=== PATIENT | female | born 1995 | race Two or more races ===

== ENCOUNTER → 2024-05-24 | Outpatient (BNVA) | payer OTHER, SELFPAY | END | disposition home or self-care (01) | PROVIDERS: PCP Internal Medicine; Referring Provider Specialist; Visit Provider Urology | DX: N20.2 Calculus of kidney with calculus of ureter (principal) | CPT/HCPCS: 81003; 99212; G0463 ==

== ENCOUNTER 2024-08-19 12:53 | Inpatient (IN) | payer OTHER, SELFPAY ==
[2024-08-19] VITALS (58 sets, daily range): BP systolic 123–144; BP diastolic 73–92; PULSE 80–100; RESP 16–100; TEMP 36.6–37.2; O2SAT 98–100; BMI 23.6
[2024-08-19 13:47] LABS: ROM Kit Lot # 578010271; Swb Mxed in Solvent 1 min? Yes
[2024-08-19 13:48] LABS: ROM Swab Mixed By: DURAJ; Rupture of Fetal Membranes Negative (Negative)
[2024-08-19 14:35] LABS: Basophils % (Auto) 0 % (0-2.5); Eosinophils # (Auto) 0.1 Thou/mm3 (0.0-0.5); Eosinophils % (Auto) 1 % (0-10); Hematocrit 33.1 % (36.0-46.0); Hemoglobin 12.3 g/dL (12.0-16.0); Immature Granulocytes % (Auto) 0 % (0-0); Immature Granulocytes Auto 0.04 Thou/mm3 (0.00-0.00); Lymphocytes # (Auto) 1.8 Thou/mm3 (1.0-4.8); Lymphocytes % (Auto) 19 % (10-50); Mean Corpuscular HGB Conc 37.2 g/dl (31.0-37.0); Mean Corpuscular Hemoglobin 33.7 pg (25.0-35.0); Mean Corpuscular Volume 91 fL (80-100); Monocytes # (Auto) 0.6 Thou/mm3 (0.0-0.8); Monocytes % (Auto) 6 % (0-12); Neutrophils # (Auto) 7.1 Thou/mm3 (1.8-7.7); Neutrophils % (Auto) 74 % (37-80); Nucleated Red Blood Cell % 0 /100 WBC (0); Platelet Count 219 Thou/mm3 (140-440); RDW Standard Deviation 44.2 fL (36.4-46.3); Red Blood Count 3.65 Miln/mm3 (4.00-5.20); White Blood Count 9.7 Thou/mm3 (3.6-11.0)
[2024-08-19 14:59] LABS: Alanine Aminotransferase 21 U/L (10-49); Albumin, Serum 3.8 gm/dL (3.5-5.0); Albumin/Globulin Ratio 1.8 (1.2-2.2); Alkaline Phosphatase 155 U/L (46-116); Anion Gap 12 (7-16); BUN/Creatinine Ratio 8 Ratio (12-20); Bilirubin,Total 0.4 mg/dL (0.3-1.2); Blood Urea Nitrogen 5 mg/dL (9-23); Calcium 9.2 mg/dL (8.3-10.6); Calcium (Corrected) 9.4 mg/dL (8.5-10.1); Carbon Dioxide 19.6 mMol/L (20.0-31.0); Chloride 110 mMol/L (98-107); Creatinine (Component) 0.6 mg/dL (0.6-1.3); Estimated Creatinine Clearance 131.8 mL/min (>60); Globulin 2.1 gm/dL (2.3-3.5); Glucose 78 mg/dL (74-106); Osmolality,Calculated 279 (275-295); Potassium 3.6 mMol/L (3.4-5.1); Sodium 142 mMol/L (136-145); Total Protein 5.9 gm/dL (5.7-8.2); Uric Acid 5.7 mg/dL (3.1-7.8); eGFR > 60 See Note
[2024-08-19] MEDS: RINGERS LACTATED 1000 ML 1,000 ML 100 ML IV (15:00)
[2024-08-19 15:17] LABS: Syphilis Nonreactive (Nonreactive)
[2024-08-19 15:51] LABS: Fibrinogen 440 mg/dL (175-375); INR 0.9 (0.9-1.3); Partial Thromboplastin Time 24.8 Seconds (22.0-36.0); Prothrombin Time 9.7 Seconds (9.0-12.2)
[2024-08-19 16:05] LABS: Collection Type, Urine Clean Catch
[2024-08-19 17:04] LABS: Bacteria,Urine 1+; Bilirubin,Urine Negative (Negative); Blood,Urine 2+ (Negative); Color,Urine Colorless (Lt Yel-Yel); Glucose, Urine Negative (Negative); Ketones,Urine Negative (Negative); Leukocyte Esterase,Urine Positive (Negative); Nitrite,Urine Negative (Negative); PH,Urine 7.5 (5.0-7.0); Protein,Urine Negative (Neg - Trace); RBC,Urine 2 /hpf (0-3); Specific Gravity,Urine 1.004 (1.001-1.035); Sperm,Urine Present; Squamous Epithelial Cell,Urine 4 /hpf (0-5); Urobilinogen,Urine Negative mg/dL (0.0-1.0); WBC,Urine 2 /hpf (0-5)
[2024-08-19 17:05] LABS: Clarity,Urine Hazy (Clear/Hazy)
--- NOTE | 2024-08-19 19:04 | PD.LDHP ---
Documentation for date of: 08/19/24 OB Labor/Induct. HPI History of Present Illness Chief complaint: Early labor : 2 Para: 0 Term pregnancies: 0 pregnancies: 0 Living children: 0 History of Abortions: Spontaneous and Elective: 1 History of Vaginal deliveries: 0 History of sections: No History of : No PENELOPE: 08/20/24 Gestational Age (weeks): 39 Gestational Age (days): 6 Indication for induction: other (Slightly elevated blood pressures) History of present illness: Patient is a 29-year-old -0-1-0 with all care uncomplicated with Dr. Baltazar Maldonado who presented to triage this afternoon with some spotting and she thought she might be leaking. She tested negative for membrane rupture with an AmniSure. She was however abril about every 2 to 3 minutes. The patient was 1 to 2 cm on admission. Her blood pressures were elevated in the 140s over 80s and PIH labs were drawn which were normal. As the patient was scheduled for an induction with Dr Maldonado in the morning of 08/20/2024, and her blood pressures were slightly dilated elevated she was admitted to labor and delivery. Of note the wind instrument repairer checked her on admission she was 1 to 2 cm dilated. When I checked her about 2 hours later she progressed to 3 cm dilatation. She is interested in epidural. All care is up-to-date in the chart and her group B strep is negative. History of Present Dating criteria: LMP confirmed by 1st trimester US Adequate Care: Yes Ultrasounds: normal mid trimester US Obstetrical complications: none Medical complications: none Labs Maternal Blood Type: A Neg Labs: Positive: Rubella Titre, Negative: RPR, Hepatitis B, HIV, Chlamydia and Gonorrhea and Unknown: Herpes Type 1, Herpes Type 2 and Group Beta Strep Past Medical History Surgical History SURGICAL: Negative Section Meds Home Medications and Allergies Home Medications ?Medication ?Instructions ?Recorded ?Confirmed ?Type doxylamine 10 mg-pyridoxine (vit 1 tab PO QDAY 05/24/24 05/24/24 History B6) 10 mg tablet,delayed release (Diclegis) Allergies Allergy/AdvReac Type Severity Reaction Status Date / Time No Known Allergies Allergy Unverified 05/24/24 14:28 OB Exam Physical Exam Vital signs: Temp Pulse Resp BP Pulse Ox 97.9 F 85 17 125/73 99 06/08/25 13:15 08/19/24 17:56 08/19/24 13:15 08/19/24 17:56 08/19/24 17:59 Detailed Labor and Delivery Exam Dilation (cm): 3 Effacement (%): 80 Cervix position: mid station: -2 Consistency: medium Presentation: Vertex Membranes: intact monitor accelerations: 15x15 monitor decelerations: None jail variability: Moderate (11-25) Contraction frequency (min): every 3 min on admission Tachysystole: No Contraction intensity: Mild OB Results Labs 08/19/24 14:12 08/19/24 14:12 Labs: Short CBC 08/19/24 Range/Units 14:12 WBC 9.7 (3.6-11.0) Thou/mm3 Hgb 12.3 (12.0-16.0) g/dL Hct 33.1 L (36.0-46.0) % Plt Count 219 (140-440) Thou/mm3 BMP 08/19/24 14:12 Sodium 142 Potassium 3.6 Chloride 110 H Carbon Dioxide 19.6 L BUN 5 L Creatinine 0.6 Glucose 78 Calcium 9.2 Liver Function 08/19/24 Range/Units 14:12 Total Bilirubin 0.4 (0.3-1.2) mg/dL ALT 21 (10-49) U/L Alkaline Phosphatase 155 H (46-116) U/L Albumin 3.8 (3.5-5.0) gm/dL Urine 08/19/24 Range/Units 14:30 Urine Color Colorless A (Lt Yel-Yel) Urine Clarity Hazy (Clear/Hazy) Urine pH 7.5 H (5.0-7.0) Ur Specific [place] 1.004 (1.001-1.035) Urine Protein Negative (Neg - Trace) Urine Glucose (UA) Negative (Negative) OB Assessment & Plan Assessment and Plan (1) Supervision of high risk in third trimester: Status: Acute Assessment and plan: Okay to ambulate. Patient allow me to strip her membranes. She was okay with an epidural followed by AROM and Pitocin if needed. Patient is making slow progress on her own and wants to walk in early labor. All preeclamptic labs are within normal limits
[2024-08-20] VITALS (291 sets, daily range): BP systolic 79–173; BP diastolic 40–101; PULSE 58–178; RESP 12–22; TEMP 36.3–37.7; O2SAT 90–100
[2024-08-20] MEDS: OXYTOCIN in NS 30 units 30 UNIT/500 ML BAG IV (02:50)
--- NOTE | 2024-08-20 10:14 | PD.ANESPROG ---
Documentation for date of: 08/20/24 BRIEF ANESTHESIA NOTE: Dr. Maldonado asked for my consult regarding this patient's labor epidural around 9:15 am today while I'm scheduled in OR. Her epidural was placed by the scheduled OB COSMETICS DEMONSTRATOR and he mentioned patient having high epidural after epidural placement and asked for my input about her epidural management with regard to progression of her labor. 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 I saw her in OB 453 just few minutes ago and she was alert, calm, on room air, seated up in bed, NAD, epidural in place but off, with RN and her family visitors at bedside. She reported after epidural was placed and she was given epidural bolus and she was made flat, she felt rushing feeling in her face, felt nauseous, and also felt drooping R eyelid and her pupil was reportedly constricted. Her epidural was stopped and it has been off since 5 am per RN report. On my visit, she reported she felt better and her facial symptoms have resolved, and she felt comfortable without any labor pain currently. The COSMETICS DEMONSTRATOR reported the same on his follow up prior to my visit. I did not notice any ptosis on my visit. She endorsed she felt comfortable from her labor pain after the epidural was placed, R > L. I educated them rare possibility of Ana's syndrome that can happen with epidural and it's usually transient and self resolves as it did in her case. They asked about doing second epidural catheter and I recommenced to them and her RN that given that she has working epidural in place, it would be esteves to still use it and not place another catheter that has its own risk. I recommended to let her labor pain come back and then re-start her epidural at a lower rate, like 6 cc/hr, and then continue close assessment. If then, the current epidural is still problematic, then a second epidural can be considered despite the risk. I discussed with her RN to continue to manage her labor as per their management. They agreed with the plan and had no further questions before I left. I discussed this with the COSMETICS DEMONSTRATOR including suggestions for further management, and with Dr. Maldonado. Jose C Walton MD Anesthesia Progress Note Progress Note Most recent Vital Signs: Last Vital Signs Temp 98.0 F 08/20/24 03:13 Pulse 107 H 08/20/24 10:01 Resp 18 08/20/24 03:13 BP 141/94 H 08/20/24 10:01 Pulse Ox 96 08/20/24 10:10
[2024-08-20] MEDS: RINGERS LACTATED 1000 ML 1,000 ML 100 ML IV ×2 (11:20→16:10)
[2024-08-20] MEDS: fentaNYL CIT INJ 50 mCg/ML AMP 2ML 100 MCG IVP ×2 (12:00→14:02)
--- NOTE | 2024-08-20 12:27 | PD.LDPN ---
Documentation for date of: 08/20/24 OB Labor Progress Note Pain Control Comments: Epidural and Fentanyl Pelvic Exam Dilation (cm): 4.5 Effacement (%): 80 station: -1 Amniotic membrane status: Ruptured Comments: vtx Contractions Monitor mode: External Contraction frequency: 2-4.5 Contraction intensity: Moderate Status status: Category ll Assessment and Plan Comments: IUP 40 weeks [place] HTN possible Borderline Gestational HTN Induction of Labor. Anticipate
[2024-08-20] MEDS: ACETAMINOPHEN IVPB 1,000 MG/100 ML VIAL 250 MG IV (12:31)
[2024-08-20] MEDS: CARBOPROST TROMETH INJ 250 MCG/ML VIAL IM (17:46)
[2024-08-20] MEDS: TRANEXAMIC ACID 1,000 MG IVPB 1,000 MG/100 ML BAG 200 MG IV (17:47)
--- NOTE | 2024-08-20 17:54 | PD.LDPPPRG ---
Subjective Subjective Interval history: Patient has persistent steady bleeding Exam Vital Signs Temp Pulse Resp BP Pulse Ox O2 Del Method 98.2 F 122 H 16 142/89 H 100 Room Air 08/20/24 12:25 08/20/24 17:41 08/20/24 12:25 08/20/24 17:41 08/20/24 17:48 08/20/24 12:25 Routine Abdominal Exam Comments: Fundus is boggy Objective Labs 08/19/24 14:12 08/19/24 14:12 Assessment & Plan Problem List (1) Supervision of high risk in third trimester: Status: Acute Assessment and plan: hemorrhage Uterine atony Following agents given: Pitocin TXA Hemabate Methergine Cytotec Type and Cross for 2 u pRBCs. Plan Exam Under Anesthesia, Uterine curettage, placement of Bakri Balloon Informed consent was obtained the patient made aware the risk complication alternative benefits of the proposed procedure and she agrees
--- NOTE | 2024-08-20 18:50 | SUR.PHASEI ---
pt received from OR in recovery bay 8. pt awake and alert, breathing unlabored on room air. v/s stable. pt dressing peripad cdi. backri ballon in place, reardon catheter in place. report received from Micah WORTHINGTON and Sourav PLASENCIA.
--- NOTE | 2024-08-20 19:09 | ESDS_ITS ---
DS: Providers Provider Date of admission: 08/19/24 14:06 Primary care physician: Lindsay Salazar MD Admitting Provider: Melody London MD ([facility]) Attending Provider on Admission: Bogdan Parsons MD Attending Provider on DC: Baltazar Maldonado MD Discharging Provider: Baltazar Maldonado MD DS: Diagnosis Problem List Completed Was Problem List Reviewed/Reconciled?: Yes Summary/Hosp Course Brief History: Patient is a 29-year-old -0-1-0 with all care uncomplicated with Dr. Baltazar Maldonado who presented to triage this afternoon with some spotting and she thought she might be leaking. She tested negative for membrane rupture with an AmniSure. She was however abril about every 2 to 3 minutes. The patient was 1 to 2 cm on admission. Her blood pressures were elevated in the 140s over 80s and PIH labs were drawn which were normal. As the patient was scheduled for an induction with Dr Maldonado in the morning of 08/20/2024, and her blood pressures were slightly dilated elevated she was admitted to labor and delivery. Of note the clinical laboratory medical director checked her on admission she was 1 to 2 cm dilated. When I checked her about 2 hours later she progressed to 3 cm dilatation. She is interested in epidural. All care is up-to-date in the chart and her group B strep is negative. Peripartum Data Delivery Method: Normal Vaginal Delivery Episiotomy Description: None Laceration Description: see Delivery Summary Procedures: Procedures Operation Date: 08/20/24 18:15 <No data on this case meets the specified criteria> 1: Disposition of : other (Transferred to [facility]) Time Spent with Patient Time attestation: Total time spent providing and/or coordinating discharge services: Exam Vital Signs Temp Pulse Resp BP Pulse Ox O2 Del Method 98.7 F 122 H 17 142/89 H 100 Room Air 08/20/24 16:00 08/20/24 17:41 08/20/24 16:00 08/20/24 17:41 08/20/24 17:48 08/20/24 16:00 Discharge Plan Plan Patient Disposition: HOME (Self Care) Patient condition on transfer: Stable Prescriptions/Referrals Prescriptions/Med Rec: No Action doxylamine-pyridoxine (vit B6) [Diclegis] 10-10 mg tablet,delayed release (/EC) 1 tab PO QDAY ferrous sulfate 325 mg (65 mg iron) tablet 325 mg PO QDAY Patient Comments: TAKE 1 TABLET BY MOUTH EVERY OTHER DAY PNV cmb#95-ferrous fumarate-FA 28 mg iron- 800 mcg tablet 1 tab PO QDAY Referrals: Lindsay Salazar MD [Primary Care Provider] - Patient/Caregiver Discharge Instructions Discharge Activity: activity as tolerated Other Discharge Activity Instructions:: Follow up office 6 weeks. Print Language: Kinyarwanda Stand Alone Forms: Hilda Award Info., Patient Portal Info Letter Planned Discharge Date 08/22/24
--- NOTE | 2024-08-20 19:09 | OBDSUM_ITS ---
Shoulder Dystocia Surgical Team Notified Surgical team notified:: Yes Vacuum Assisted Delivery General Patient Counseled by physician:: Yes Informed consent to patient:: Yes Estimated weight:: 7 lb 8 oz Cervical dilation:: fully dilated station:: +3 position:: OA Caput:: No Vacuum Application Vacuum type:: Mityvac Vacuum application:: flexing median Total vacuum time (min):: 2 Maximum pressure (cm Hg):: 50 Cup Placement Flexion point identified:: Yes Cup approp. for head position:: Yes Maternal tissue excluded:: Yes Vacuum Procedure Number of pulls (contractions):: 2 Number of pop-offs:: 0 Recommended range maintained:: Yes Vacuum reduced between pulls:: Yes Advancement made each pull:: Yes Vacuum successful:: Yes Immediate Preston Evaluation Immediate assessment:: no apparent injury Data (Curtis) Data Hx Section: No : 2 Term: 0 : 0 Livin Abortions: Spontaneous & Theraputic: 1 Delivery Data (Curtis) Labor Data Initiation of labor: Induction Induction/Augmentation Agent: Pitocin and Artificial ROM ROM date: 08/20/24 ROM time: 10:00 Amniotic membrane rupture type: Artificial Amniotic fluid description: Clear Delivery Data EDC: 08/20/24 EDC calculated by:: LMP/early US confirmation Onset of labor date: 08/20/24 Onset of labor time: 10:00 Complete dilation date: 08/20/24 Complete dilation time: 16:22 delivery date: 08/20/24 delivery time: 16:36 Gestational age (weeks): 40 Gestational age (days): 0 Placenta delivery date: 08/20/24 Placenta delivery time: 16:43 Stage 1 total time: Labor - Stage 1 Duration 6 hours and 22 minutes Delivered by: Baltazar Maldonado Line Installer at delivery: No Delivery Method Delivery method: Normal Vaginal Delivery Presentation: Vertex Anesthesia Type Anesthesia Type: Local and Epidural Placenta Placenta delivery description: Spontaneous Placenta Disposition: Sent to Pathology Cord blood sent to lab: Yes Episiotomy Episiotomy description: None Lacerations #1: Perineal: 3rd degree Vaginal: 2nd degree (Bilateral deep sulcus laceration) Perineal repair Sutures used for repair: other (Sphincter Ani capsule 0 chronic. Vaginal sulcus 0 vicryl. Perineal 2-0 chromic. ) EBL Estimated blood loss (ml): 1,100 Umbilical Cord cord description: 3 Vessels Additional Procedures Exam under anesthesia. Uterine currettage Placement of Bakri Balloon Repair of bilateral vaginal sulcus laceration Complications Complications: hemorrhage Uterine atony Bilteral vaginal sulcus lacerations Data (Curtis) Data order: 1 Preston's gender: Female Additional Comments Additional comments: See RN notes for Weight and APGARS
--- NOTE | 2024-08-20 19:15 | ESOP_ITS ---
Operative Note - LIFE INSURANCE UNDERWRITER Procedure Date of procedure: 08/20/24 Procedure Performed: Exam under anesthesia Uterine curettage Repair of bilateral vaginal sulcus lacerations Placement of Bakri Placement of vaginal gauze packing Indication: hemorrhage Uterine atony EBL prior to OR 800 cc Pre-Op diagnosis: hemorrhage Uterine atony Post-Op diagnosis: hemorrhage Uterine atony Bilateral vaginal sulcus lacerations Anesthesia type: General Procedure description: After proper informed consent was obtained and the patient made aware of the risk complications alternatives and benefits of the proposed procedure she was taken to the operating room where she underwent induction of general anesthesia. She was placed in the dorsolithotomy position and prepped and draped in the usual sterile fashion. A timeout was performed. The patient underwent exam under anesthesia which revealed an atonic uterus. The uterine cavity was curetted and no products of conception were obtained. The bilateral lateral sulcus tears were repaired with 0 Vicryl in a running interlocking fashion. The Bakri balloon was placed and inflated with 500 cc of normal saline. There was no bleeding around the balloon. A Curlex roll was placed in the vagina for vag inal packing trailing out the opening of the vagina. Solares catheter was placed. She was reversed from general anesthesia in the supine position and transferred to the postanesthesia care unit in stable condition. Specimen: none Estimated blood loss (ml): 300 Findings: Atonic uterus No retained products of conception Bilateral vaginal sulcus lacerations Complications: none Surgical staff General anesthesia Sourav Rodrigues CRNA Operation Date: 08/20/24 18:15 <No data on this case meets the specified criteria> Diagnosis Discharge Diagnosis (1) Vacuum-assisted vaginal delivery: Status: Acute (2) hemorrhage: Status: Acute (3) Uterus, atony: Status: Acute (4) High vaginal laceration during delivery: Status: Acute (5) Blood transfusion during current hospitalisation: Status: Acute Problem List Completed Was Problem List Reviewed/Reconciled?: Yes
[2024-08-20] MEDS: fentaNYL CIT INJ 50 mCg/ML AMP 2ML IVP (19:31)
[2024-08-20] MEDS: PROMETHAZINE INJ 12.5 MG in SODIUM CHLORIDE 0.9% 50 ML 2.5 MG IV (19:41)
--- NOTE | 2024-08-20 20:45 | SUR.PHASEI ---
pt awake and alert, breathing unlabored on room air. v/s stable. pt dressing peripad cdi. backri ballon in place, reardon catheter in place. report called to Maddie WORTHINGTON. pt will be transferred to room at this time.
[2024-08-20] MEDS: ACETAMINOPHEN 325 MG TABLET 650 MG PO (21:45)
[2024-08-20] MEDS: HYDROcodone/APAP 5/325 TABLET 2 TAB PO (21:45)
[2024-08-21] VITALS (7 sets, daily range): BP systolic 98–130; BP diastolic 61–86; PULSE 82–96; RESP 16–18; TEMP 36.3–37.1; O2SAT 96–98
[2024-08-21] MEDS: IBUPROFEN TAB 400 MG TABLET 800 MG PO ×3 (00:24→17:12)
[2024-08-21] MEDS: ceFAZolin 2 GM in SODIUM CHLORIDE 0.9% 100 ML IV (00:42)
[2024-08-21 05:01] LABS: Basophils % (Auto) 0 % (0-2.5); Eosinophils % (Auto) 0 % (0-10); Hematocrit 28.1 % (36.0-46.0); Hemoglobin 10.2 g/dL (12.0-16.0); Immature Granulocytes % (Auto) 0 % (0-0); Immature Granulocytes Auto 0.07 Thou/mm3 (0.00-0.00); Lymphocytes # (Auto) 1.6 Thou/mm3 (1.0-4.8); Lymphocytes % (Auto) 9 % (10-50); Mean Corpuscular HGB Conc 36.3 g/dl (31.0-37.0); Mean Corpuscular Hemoglobin 33.9 pg (25.0-35.0); Mean Corpuscular Volume 93 fL (80-100); Monocytes # (Auto) 1.2 Thou/mm3 (0.0-0.8); Monocytes % (Auto) 7 % (0-12); Neutrophils # (Auto) 15.3 Thou/mm3 (1.8-7.7); Neutrophils % (Auto) 84 % (37-80); Nucleated Red Blood Cell % 0 /100 WBC (0); Platelet Count 164 Thou/mm3 (140-440); RDW Standard Deviation 46.1 fL (36.4-46.3); Red Blood Count 3.01 Miln/mm3 (4.00-5.20); White Blood Count 18.1 Thou/mm3 (3.6-11.0)
[2024-08-21] MEDS: ACETAMINOPHEN 325 MG TABLET 650 MG PO ×2 (05:55→11:35)
--- NOTE | 2024-08-21 06:04 | ESPR_ITS ---
RE: NATAN GANDARA : 1995 DATE OF SERVICE: 08/21/2024 S: day #1, the patient denies any problem or complaints. Her Bakri balloon is in place. Solares catheter is draining clear yellow urine with adequate urine output. There is no excessive vaginal bleeding. She denies any dizziness or lightheadedness. She is tolerating a regular diet. She is passing flatus. She denies any chest pain, palpitations, shortness of breath or lower extremity pain. O: Vital Signs: Blood pressure 108/69, heart rate 85, respirations 18, temperature 98.7, and pulse oximetry 96% on room air. Lungs: Clear to auscultation bilaterally. Heart: Regular rate and rhythm. Abdomen: Fundus is firm at umbilicus. STUART drain from Bakri balloon, 90 mL total since OR. Extremities: Nontender. LABORATORY DATA: Hemoglobin predelivery is 12.3, post delivery is 10.2. A: 1. day #1, status post vacuum-assisted vaginal delivery. 2. Postop day #1, status post exam under anesthesia, uterine curettage, repair of bilateral deep vaginal sulcus tears and placement of Bakri balloon. P: Remove Bakri balloon later today. Continue Ancef for surgical prophylaxis due to indwelling Bakri balloon. sharepoint consultant. I discussed with the patient, the nature of her condition, intraoperative findings, and expectation for recovery. All questions answered. DT: 05:49:29 TT: 06:02:00 Ref: [id number] - TID: [id number] [facility]
[2024-08-21] MEDS: ceFAZolin/D5W 2 GM IV 2 GM/100 ML BAG IV ×2 (09:03→17:11)
[2024-08-21] MEDS: DOCUSATE SOD 100 MG CAPSULE PO (09:03)
--- NOTE | 2024-08-21 10:40 | CHAP ---
Visited with patient and gave comfort and encouragement and prayer for her .
[2024-08-21] MEDS: fentaNYL CIT INJ 50 mCg/ML AMP 2ML 100 MCG IVP (16:23)
--- NOTE | 2024-08-21 18:10 | PC.NURSE ---
1615-pt requests pain medication. Pt not due for tylenol or motrin at this time. Geiling DO okay with fentanyl to be given for pain management during bakri removal 1700-Geiling DO at bedside to remove bakri balloon. Procedure explained and pt agrees. Bakri removed in its entirety. Per DO, no fundals needed and DC reardon in 1 hour. pt may get up and ambulate with assistance
[2024-08-21] MEDS: HYDROcodone/APAP 5/325 TABLET 1 TAB PO (20:26)
[2024-08-21] MEDS: BENZO/LANO/ALOE (Dermoplast) 60 GM CAN 1 SPRAY TOP (21:10)
[2024-08-22 00:24] VITALS: BP 112/74; PULSE 87; RESP 17; TEMP 36.8; O2SAT 99
[2024-08-22] MEDS: ceFAZolin/D5W 2 GM IV 2 GM/100 ML BAG IV (01:29)
[2024-08-22] MEDS: IBUPROFEN TAB 400 MG TABLET 800 MG PO (03:47)
[2024-08-22 04:00] VITALS: BP 132/83; PULSE 80; RESP 18; TEMP 36.8; O2SAT 97
--- NOTE | 2024-08-22 07:32 | ESPR_ITS ---
Subjective Subjective Interval history: Patient denies any excessive vaginal bleeding since the balloon was removed.. She is voiding and ambulating and tolerating a regular diet and passing flatus. Baby was transferred to [facility] Exam Vital Signs Temp Pulse Resp BP Pulse Ox O2 Del Method 98.2 F 80 18 132/83 H 97 Room Air 08/22/24 04:00 08/22/24 04:00 08/22/24 04:00 08/22/24 04:00 08/22/24 04:00 08/22/24 04:00 Routine Cardiovascular Exam Comments: Regular rate and rhythm Routine Abdominal Exam Comments: Fundus is firm nontender Routine Extremities Exam Comments: Nontender Objective Labs 08/21/24 04:50 08/19/24 14:12 Labs: Laboratory Results - last 24 hr 08/19/24 08/21/24 14:12 05:42 Blood Type A Negative Rho(D) IG Studies Ready Antibody Screen NEGATIVE Maternal Bleed Negative Crossmatch See Detail Blood Bank Wristband ID Yes Blood Bank Comment FFP Ready Assessment & Plan Problem List (1) Vacuum-assisted vaginal delivery: Status: Acute Assessment and plan: Discharge home Discharge instructions given Follow-up in the office in 6 weeks Return immediately for any excessive vaginal bleeding Continue to take iron every other day Continue to take vitamin daily Nonsteroidal anti-inflammatory as needed pain (2) hemorrhage: Status: Acute (3) Uterus, atony: Status: Acute (4) High vaginal laceration during delivery: Status: Acute (5) Blood transfusion during current hospitalisation: Status: Acute Time Spent With Patient Time: Total time spent is greater than 50% in coordination of care (as documented) at patient's floor/unit and/or counseling patient:
[2024-08-22 08:00] VITALS: BP 120/83; PULSE 83; RESP 16; TEMP 36.8; O2SAT 96
[2024-08-22] MEDS: DOCUSATE SOD 100 MG CAPSULE PO (08:05)
[2024-08-22] MEDS: ACETAMINOPHEN 325 MG TABLET 650 MG PO (08:18)
== END 2024-08-22 09:40 | disposition home or self-care (01) | DRG 768 ==
LOC: S4SX 08-20 06:56 → S4NX 08-20 18:11
PROVIDERS: Specialist; Admitting Provider Obstetrics & Gynecology; PCP Internal Medicine; Visit Provider Obstetrics & Gynecology
PROC: (CPT 58120; principal; 2024-08-20 18:00)
DX: O99.354 Diseases of the nervous system complicating childbirth (principal); Z37.0 Single live birth; O70.20 Third degree perineal laceration during delivery, unspecified; O72.1 Other immediate postpartum hemorrhage; Z3A.39 39 weeks gestation of pregnancy; G90.2 Horner's syndrome; R03.0 Elevated blood-pressure reading, without diagnosis of hypertension
CPT/HCPCS: 36415; 59409; 80053; 81001; 84112; 84550; 85025; 85384; 85461; 85610; 85730; 86780; 86850; 86900; 86901; 86923; 86927; 94762; A4217; J0131; J0689; J0690; J2250; J2371; J2405; J2550; J2590; J2704; J2790; J2795; J3010; J3490; J7050; J7120; P9016; P9060; A9270

== ENCOUNTER → 2024-11-19 | Outpatient (BNVA) | payer OTHER, SELFPAY | END | disposition home or self-care (01) | PROVIDERS: PCP Internal Medicine; Referring Provider Internal Medicine; Visit Provider Urology | DX: R82.992 Hyperoxaluria (principal); R82.991 Hypocitraturia; Z87.440 Personal history of urinary (tract) infections; Z87.442 Personal history of urinary calculi | CPT/HCPCS: 81003; 99212; G0463 ==